=== PATIENT | female | born 1980 | race American Indian/Alaskan Native ===

== ENCOUNTER 2016-05-18 09:35 | Emergency (ER) | payer MEDICAID ==
[2016-05-18 09:45] VITALS: BP 145/95
[2016-05-18] MEDS ORDERED: DECADRON IM ONE (10:47)
[2016-05-18] MEDS ORDERED: TORADOL IM ONE (10:47)
--- NOTE | 2016-05-18 10:47 | Emergency Department Report ---
ED Back Pain/Injury HPI - General Chief Complaint: Pain General Stated Complaint: LEG PAIN/BACK PAIN Time Seen by Provider: 05/18/16 10:37 Source: patient Limitations: No Limitations - History of Present Illness Initial Comments: Patient here reporting that she has body aches and back pain, pain in both her legs for 2 weeks. She says she had chest pain sporadically after eating and burping a lot also for 2 weeks she is not having any chest pain at present. She denies any shortness of breath. She said her feet hurt at times under her body has been aching for 3 weeks. Generalized pain is 6 out of 10. Patient says she has appointment to see her primary care in 23 June 2016 because she wanted to come in to get treated for pain. She said her primary care physician is Dr. Hui. Patient is also reporting that she had an x-ray of her back and the doctor told that she had sciatica but didn't give her any more information. Her back pain is chronic. Patient reported that she tried [id number] medication but is not helping. She denies any abdominal or back pain. Denies any nausea or vomiting. Patient said pain is radiating down her thighs and legs. She has had similar pain in the past. Denies any urinary burning frequency or urgency. MD Complaint: back pain Onset/Timin -: week(s) Similar Symptoms Previously: Yes Place: home Radiation: buttocks, left leg, right leg Severity: moderate Severity scale (0 -10): 6 Quality: aching Consistency: intermittent Improves With: immobilization Worsens With: walking Context: other (h/o chronic back pain with sciatica) - Related Data Previous Rx's Medication Instructions Recorded Last Taken Type traMADol [Ultram] 50 mg PO Q6HR PRN #20 tablet 05/18/16 Unknown Rx Allergies Allergy/AdvReac Type Severity Reaction Status Date / Time No Known Allergies Allergy Unverified 05/18/16 09:41 ED Review of Systems ROS: Stated complaint: CHESTPAIN/LEG PAIN/BACK PAIN Other details as noted in HPI Comment: All other systems reviewed and negative Constitutional: denies: chills, fever Eyes: denies: eye discharge ENT: denies: ear pain, throat pain, congestion Respiratory: no symptoms reported Cardiovascular: denies: chest pain, palpitations, edema, syncope Gastrointestinal: denies: abdominal pain, nausea, vomiting, diarrhea Genitourinary: denies: urgency, dysuria, frequency, hematuria, discharge Musculoskeletal: back pain, arthralgia. denies: joint swelling Skin: denies: rash Neurological: denies: headache, weakness, numbness, paresthesias, confusion, abnormal gait, vertigo ED Past Medical Hx - Past Medical History Previous Medical History?: Yes Additional medical history: vaginal delivery x 1. Chronic back pain - Surgical History Past Surgical History?: Yes Additional Surgical History: x 3, Tubaligation - Family History Family history: hypertension - Social History Smoking Status: Never Smoker Substance Use Type: Alcohol, Non Opiate Pain - Medications Home Medications: Home Medications Medication Instructions Recorded Confirmed Last Taken Type traMADol [Ultram] 50 mg PO Q6HR PRN #20 tablet 05/18/16 Unknown Rx ED Physical Exam - General Limitations: No Limitations General appearance: alert, in no apparent distress - Head Head exam: Present: atraumatic, normocephalic, normal inspection - Eye Eye exam: Present: normal appearance, PERRL, EOMI Pupils: Present: normal accommodation - ENT ENT exam: Present: normal exam, normal orophraynx, mucous membranes moist, TM's normal bilaterally, normal external ear exam - Neck Neck exam: Present: normal inspection, full ROM. Absent: tenderness, meningismus, lymphadenopathy - Respiratory Respiratory exam: Present: normal lung sounds bilaterally. Absent: respiratory distress, wheezes, rales, rhonchi, stridor, chest wall tenderness - Cardiovascular Cardiovascular Exam: Present: regular rate, normal rhythm, normal heart sounds - GI/Abdominal GI/Abdominal exam: Present: soft, normal bowel sounds. Absent: distended, tenderness, guarding, rebound, rigid - Extremities Exam Extremities exam: Present: normal inspection, full ROM, normal capillary refill , other (patient ambulates without any difficulties. Pulses are 2+. No neurovascular compromise. Capillary refill less than 3 seconds. No deformities to joints. Patient with good color, movement, temperature and sensation to all extremities). Absent: tenderness, pedal edema, joint swelling , calf tenderness - Back Exam Back exam: Present: normal inspection, full ROM. Absent: tenderness, CVA tenderness (R), CVA tenderness (L), muscle spasm, paraspinal tenderness, vertebral tenderness, rash noted - Expanded Back Exam Expanded Back exam: Absent: saddle anesthesia Back exam: Negative Straight Leg Raising: Left, Right - Neurological Exam Neurological exam: Present: alert, oriented X3, normal gait, reflexes normal. Absent: motor sensory deficit - Expanded Neurological Exam Expanded Neurological exam: Absent: innattentive, memory loss-remote event, memory loss- recent event, ataxia, receptive aphasia, expressive aphasia, total aphasia, tremor, protecting the airway Patient oriented to: Present: person, place, time Speech: Present: fluid speech Cranial nerves: EOM's Intact: Normal, Gag Reflex: Normal, Nystagmus: Normal Cerebellar function: Romberg: Normal Upper motor neuron: Pronator Drift: Normal Sensory exam: Upper Extremity Light Touch: Normal, Upper Extremity Temperature: Normal, Lower Extremity Light Touch: Normal, Lower Extremity Temperature: Normal , LE 2 Point Discrimination: Normal Motor strength exam: RUE: 5, LUE: 5, RLE: 5, LLE: 5 DTR: bicep (R): 2+, bicep (L): 2+, tricep (R): 2+, tricep (L): 2+, knee (R): 2+ , knee (L): 2+, ankle (R): 2+, ankle (L): 2+ Best Eye Response ([place]): (4) open spontaneously Best Motor Response (Mariela): (6) obeys commands Best Verbal Response ([place]): (5) oriented Mariela Total: 15 - Psychiatric Psychiatric exam: Present: normal affect, normal mood - Skin Skin exam: Present: warm, dry, intact, normal color. Absent: rash ED Course Vital Signs 05/18/16 05/18/16 09:41 10:59 Temperature 98.1 F Pulse Rate 73 Respiratory 18 16 Rate Blood Pressure 145/95 O2 Sat by Pulse 99 Oximetry - Reevaluation(s) Reevaluation #1: 05/18/16 11:53 Patient given Toradol 60 mg IM and emergency room and also Decadron 10 mg IM. This relieved her pain. ED Medical Decision Making - Medical Decision Making ED course: Discussed with patient that she has flareup of chronic back pain and will need to follow-up with orthopedic doctor. I also discussed with her that she needs to make sure she keeps her appointment and June 23, 2016 with her primary care physician for further workup. Patient was understanding of discharge diagnosis and treatment plan. Chin discharged home with prescription for Ultram. She had one episode of chest pain outside of the emergency room after eating and burping. She has no chest pain in emergency room. Critical care attestation.: If time is entered above; I have spent that time in minutes in the direct care of this critically ill patient, excluding procedure time. ED Disposition Clinical Impression: Acute exacerbation of chronic low back pain, Lumbar radiculopathy Disposition: DISCHARGED TO HOME OR SELFCARE Is pt being admited?: No Does the pt Need Aspirin: No Condition: Stable Instructions: Lumbar Radiculopathy (ED), Chronic Back Pain (ED) Additional Instructions: . Follow up your doctor's appointment on June 23, 2016 Please follow-up with orthopedic doctor for chronic back pain. Prescriptions: traMADol [Ultram] 50 mg PO Q6HR PRN #20 tablet PRN Reason: Pain Referrals: PRIMARY CAREMD [Primary Care Provider] - 3-5 Days NEFTALI SANTOS MD [Staff Physician] - 3-5 Days Forms: Work/School Release Form(ED)
== END 2016-05-18 12:07 | disposition home or self-care (01) ==
LOC: ED 09:35
DX: M54.16 Radiculopathy, lumbar region (principal); M54.40 Lumbago with sciatica, unspecified side; G89.29 Other chronic pain; Z98.51 Tubal ligation status; Z98.890 Other specified postprocedural states; Z79.1 Long term (current) use of non-steroidal anti-inflammatories (NSAID)
CPT/HCPCS: 96372; 99282; J1100; J1885